=== PATIENT | male | born 1990 | race African-American/Black ===

== ENCOUNTER 2019-11-30 22:33 | Emergency (ER) | payer MEDICAID ==
[~2019-11-30] VITALS: Ht 177.8 cm; Wt 85.7 kg
[2019-11-30] MEDS ORDERED: HYDROcodone/Acetamin 5/325 tab ORAL ONE (23:00)
[2019-11-30] MEDS ORDERED: HYDROCODON-ACE1 EA15 ORAL (23:01)
[2019-11-30] MEDS ORDERED: PREDNISONE20 MG ORAL (23:01)
[2019-11-30] MEDS ORDERED: IBUPROFEN600 M1 ORAL (23:01)
--- NOTE | 2019-11-30 23:01 | Emergency Room Report ---
History of Present Illness General Chief Complaint: Lower Extremity Injury Source: Patient Present Illness HPI This a 29-year-old male with no past medical history. He presents with chief complaint of back pain. Onset for about a month now. Pain is to the lower back and rating down his buttock and back of his leg. No trauma. Pain is sharp in nature. 8 out of 10. Worse with certain position. Better with rest. Has not take anything for this. Denies any fever chills but denies any incontinence of bowel or urine. No anesthesia. Allergies: Coded Allergies: No Known Allergies (Unverified , 11/30/19) COVID-19 Screening Contact w/high risk pt: No Experienced COVID-19 symptoms?: No COVID-19 Testing performed [employer]: No Patient History Past Medical History: see triage record, old chart reviewed Past Surgical History: none Pertinent Family History: none Social History: Denies: smoking Immunizations: other Reviewed Nursing Documentation: PMH: Agreed; PSxH: Agreed Nursing Documentation-PMH Past Medical History: No Stated History Review of Systems Eye: Denies: eye pain, blurred vision ENT: Denies: ear pain, nose congestion, throat swelling Respiratory: Denies: cough, shortness of breath Cardiovascular: Denies: chest pain, palpitations Gastrointestinal: Denies: abdominal pain, diarrhea, nausea, vomiting Musculoskeletal: Reports: back pain; Denies: joint pain Skin: Denies: rash Neurological: Denies: headache, numbness Endocrine: Denies: increased thirst, increased urine Hematologic/Lymphatic: Denies: easy bruising All Other Systems: negative except mentioned in HPI Physical Exam Vital Signs Date Time Temp Pulse Resp B/P (MAP) Pulse Ox O2 Delivery O2 Flow Rate FiO2 11/30/19 22:45 98.2 73 18 133/85 (101) 95 Room Air Vitals unremarkable Sp02 EP Interpretation: reviewed, normal General Appearance: well appearing, no apparent distress, alert Head: normocephalic, atraumatic Eyes: bilateral eye PERRL, bilateral eye EOMI ENT: hearing grossly normal, normal pharynx Neck: full range of motion, supple, no meningismus Respiratory: chest non-tender, lungs clear, normal breath sounds Cardiovascular #1: regular rate, rhythm, no murmur Gastrointestinal: normal bowel sounds, non tender, no mass, no organomegaly, no bruit, non-distended Musculoskeletal: back normal - No anesthesia. No step-off., normal range of motion, gait/station normal Psychiatric: mood/affect normal Medical Decision Making Diagnostic Impression: Primary Impression: Back pain Qualified Codes: M54.42 - Lumbago with sciatica, left side ER Course Patient presents with back pain. Symptoms consistent with sciatica. No red flags indicate cauda equina syndrome, spinal epidural abscess or neoplastic process. Will discharge home. Last Vital Signs Date Time Temp Pulse Resp B/P (MAP) Pulse Ox O2 Delivery O2 Flow Rate FiO2 11/30/19 22:45 98.2 73 18 133/85 (101) 95 Room Air Status: improved Disposition: HOME, SELF-CARE Condition: Stable Scripts Prednisone* (PREDNISONE*) 20 Mg Tablet 40 MG ORAL DAILY, #10 TAB Prov: Chintan Hubbard MD 11/30/19 Ibuprofen* (MOTRIN*) 600 Mg Tablet 600 MG ORAL Q6H PRN for For Pain, #30 TAB 0 Refills Prov: Chintan Hubbard MD 11/30/19 Hydrocodone/Acetaminophen 5-325* (HYDROCODONE/ACETAMINOPHEN 5-325*) 1 Each Tablet 1 TAB ORAL Q6H PRN for For Pain, #15 TAB 0 Refills Prov: Chintan Hubbard MD 11/30/19 Referrals: NON PHYSICIAN (PCP) Additional Instructions: Follow-up with your doctor in 7 days. You may need an MRI of your back. Return if symptoms worsen. Chintan Hubbard MD Nov 30, 2019 23:01
[2019-11-30 23:20] VITALS: BP 133/85
== END 2019-11-30 23:20 | disposition home or self-care (01) ==
LOC: EMR 22:56
DX: M54.42 Lumbago with sciatica, left side (principal)
CPT/HCPCS: 99282